=== PATIENT | female | born 1975 | race Caucasian/White ===

== ENCOUNTER 2021-01-15 07:06 | Inpatient (IN) | payer OTHER ==
[~2021-01-15] VITALS: Ht 162.6 cm; Wt 50.7 kg
[~2021-01-15 07:06] MED LIST: AMPH30TA2 PO; BACITRACIN 50,000 UNIT ONE; BUPIVACAINE/PF 0.25% ONE; BUPIVACAINE/PF 0.5% ONE; DEXAMETHASONE 4 MG/ML, 5ML ONE; EPINEPHRINE 1 MG/ML, 1ML ONE; HYDROmorphone 2 MG/ML, 1ML ONE; INDIGO CARMINE 0.8%, 5ML ONE; L.AC1CAP6 PO; LIDOCAINE/PF 1%, 30ML ONE; REMIFENTANIL 1 MG ONE
[2021-01-15] MEDS ORDERED: MIDAZOLAM 1 MG/ML, 2ML ONE (07:13)
[2021-01-15 07:54] VITALS: BP 112/74
[2021-01-15] MEDS ORDERED: CHLORHEXIDINE 15 ML UDC ONE (07:58)
[2021-01-15] MEDS ORDERED: LACTATED RINGERS 1,000 ML IV SCH (08:00)
[2021-01-15] MEDS ORDERED: CHLORHEXIDINE 15 ML UDC MM ONE (08:00)
[2021-01-15] MEDS ORDERED: OXYcodone 5 MG/5 ML ORAL.SOL UDC PO PRN (09:00)
[2021-01-15] MEDS ORDERED: LABETALOL 5MG/ML, 20ML IV PRN ×2 (09:00→12:30)
[2021-01-15] MEDS ORDERED: PROMETHAZINE 25 MG/ML, 1ML IVPush PRN (09:00)
[2021-01-15] MEDS ORDERED: ONDANSETRON 2MG/ML, 2ML IVPush PRN (09:00)
[2021-01-15] MEDS ORDERED: METOCLOPRAMIDE 5 MG/ML, 2ML IVPush PRN (09:00)
[2021-01-15] MEDS ORDERED: HALOPERIDOL 5 MG/ML IV PRN (09:00)
[2021-01-15] MEDS ORDERED: HYDROmorphone 1 MG/ML, 1ML INJ IVPush PRN (09:00)
[2021-01-15] MEDS ORDERED: MEPERIDINE/PF 25MG/0.5ML IVPush PRN (09:00)
[2021-01-15] MEDS ORDERED: DIAZEPAM 5 MG/ML, 2ML IVPush PRN (09:00)
[2021-01-15] MEDS ORDERED: ACETAMINOPHEN 325 MG TABLET PO PRN (09:00)
[2021-01-15] MEDS ORDERED: FENTANYL PF 100 MCG/2ML IV PRN (09:00)
[2021-01-15] MEDS ORDERED: DIPHENHYDRAMINE 50 MG/ML, 1ML IVPush PRN (09:00)
[2021-01-15] MEDS ORDERED: KETOROLAC 30 MG/1 ML IV PRN (09:00)
[2021-01-15] MEDS ORDERED: EPHEDRINE 50 MG/ML, 1ML IVPush PRN (09:00)
[2021-01-15] MEDS ORDERED: hydrALAzine 20 MG/ML, 1ML IV PRN (09:00)
[2021-01-15] MEDS ORDERED: METOPROLOL 1 MG/ML, 5ML IV PRN (09:00)
[2021-01-15 11:45] VITALS: BP 118/84
[2021-01-15] MEDS ORDERED: DIAZEPAM 5 MG TABLET PO PRN (12:30)
[2021-01-15] MEDS ORDERED: OXYcodone IR 5MG TABLET PO PRN (12:30)
[2021-01-15] MEDS ORDERED: DIAZEPAM 5 MG/ML, 2ML IV PRN (12:30)
[2021-01-15] MEDS ORDERED: ONDANSETRON 2MG/ML, 2ML IV PRN (12:30)
[2021-01-15 13:22] VITALS: BP 112/76
[2021-01-15] MEDS: D5%-0.9% NACL+KCL 20MEQ 1,000 ML IV SCH ×2 (13:23→21:24)
[2021-01-15] MEDS ORDERED: LORA10CA PO (13:43)
[2021-01-15] MEDS: DEXAMETHASONE 4 MG/ML, 1ML IV SCH ×2 (14:06→20:54)
[2021-01-15] MEDS: GABAPENTIN 300 MG CAPSULE PO SCH ×2 (16:00→20:54)
[2021-01-15] MEDS: CEFAZOLIN PMX 1GM/50ML 50 ML IVPB SCH (16:29)
[2021-01-15] MEDS ORDERED: ROCURONIUM 10MG/ML,5ML ONE (16:37)
[2021-01-15] MEDS ORDERED: ONDANSETRON 2MG/ML, 2ML ONE (16:37)
[2021-01-15] MEDS ORDERED: PROPOFOL 10 MG/ML, 20ML ONE (16:37)
[2021-01-15] MEDS ORDERED: SUCCINYLCHOLINE 20 MG/ML, 10ML ONE (16:37)
[2021-01-15] MEDS ORDERED: CEFAZOLIN 1,000 MG ONE (16:37)
[2021-01-15] MEDS ORDERED: PROPOFOL 10 MG/ML, 50ML ONE (16:37)
[2021-01-15 19:16] VITALS: BP 109/67
[2021-01-16] MEDS: CEFAZOLIN PMX 1GM/50ML 50 ML IVPB SCH (00:27)
[2021-01-16 00:40] VITALS: BP 101/66
[2021-01-16] MEDS: DEXAMETHASONE 4 MG/ML, 1ML IV SCH (02:52)
[2021-01-16 04:12] VITALS: BP 110/69
[2021-01-16] MEDS: D5%-0.9% NACL+KCL 20MEQ 1,000 ML IV SCH (06:12)
[2021-01-16 08:00] VITALS: BP 118/75
[2021-01-16] MEDS: GABAPENTIN 300 MG CAPSULE PO SCH (08:32)
[2021-01-16] MEDS ORDERED: SENNA/DOCUSATE TABLET PO SCH (09:00)
[2021-01-16 12:25] VITALS: BP 122/83
== END 2021-01-16 13:35 | disposition home or self-care (01) | DRG 473 ==
LOC: OUT 07:06 → 4NE 11:40 → ORIP 11:48 → OUT 12:11 → 4NE 12:19
PROVIDERS: ADMIT Orthopaedic Surgery Orthopaedic Surgery of the Spine; ATTEND Orthopaedic Surgery Orthopaedic Surgery of the Spine
PROC: 0RB30ZZ Excision of Cervical Vertebral Disc, Open Approach (ICD-10-PCS; 2021-01-15)
PROC: 4A11X4G Monitoring of Peripheral Nervous Electrical Activity, Intraoperative, External Approach (ICD-10-PCS; 2021-01-15)
PROC: 0RG10A0 Fusion of Cervical Vertebral Joint with Interbody Fusion Device, Anterior Approach, Anterior Column, Open Approach (ICD-10-PCS; principal; 2021-01-15 07:30)
DX: M50.121 Cervical disc disorder at C4-C5 level with radiculopathy (principal); Z88.8 Allergy status to other drugs, medicaments and biological substances; Z20.822 Contact with and (suspected) exposure to COVID-19
CPT/HCPCS: 72040; J3490; S0020; 87635; 95938; 95941; C1713; G0378; J0171; J0690; J1100; J1170; J2250; J2270; J2405; J2704; C1762; C1889; J0330; J3480; J7120